=== PATIENT | female | born 1970 | race African-American/Black ===

== ENCOUNTER 2017-06-27 13:43 | Emergency (ER) | payer OTHER, MEDICAID ==
[~2017-06-27] VITALS: Ht 162.6 cm; Wt 61.2 kg
[~2017-06-27 13:43] MED LIST: AMOXICILLIN 50500 MG PO; ATIVAN0.5 MG PO; DIAZEPAM 5 MG5 M1 OR; FLEXERIL PO; IBUPROFEN 600600 M1 PO; IBUPROFEN 800800 MG PO; MECLIZINE HCL25 M1 PO; MEDROLDOSEPACK PO; NAPROXEN DELAY500 M1 PO; NOHOMEMEDICATIONS; NORCO 5-325 TA1 EACH PO; NORFLEX100 MG PO; PREDNISONE 10 M10 M1 PO; PRILOSEC 20 MG20 MG PO; ROBAXIN 750 MG750 M1 PO; VISTARIL 25 MG25 M1 OR; VISTARIL 25 MG25 M1 PO; ZOFRAN4 MG PO
[2017-06-27 14:17] LABS: URINE BILIRUBIN NEGATIVE (Negative); URINE BLOOD TRACE (Negative); URINE COLOR YELLOW; URINE GLUCOSE-RANDOM NEGATIVE (Negative); URINE KETONES NEGATIVE (Negative); URINE LEUKOCYTES-REFLEX NEGATIVE (Negative); URINE PROTEIN NEGATIVE (Negative); URINE SPECIFIC GRAVITY >= 1.030 (1.005-1.030); URINE UROBILINOGEN 0.2 E.U./dl (0.2-1.0)
[2017-06-27 14:18] LABS: URINE CLARITY HAZY; URINE NITRITE-REFLEX POSITIVE (Negative)
[2017-06-27 14:27] LABS: ABSOLUTE BASOPHILS 0.1 thou/uL (0.0-0.2); ABSOLUTE EOSINOPHILS 0.2 thou/uL (0.0-0.7); ABSOLUTE LYMPHOCYTES 2.4 thou/uL (0.8-5.3); ABSOLUTE MONOCYTES 0.5 thou/uL (0.0-1.2); ABSOLUTE NEUTROPHILS 3.2 thou/uL (1.6-8.1); BASOPHILS 1.2 %; EOSINOPHILS 2.7 %; HEMATOCRIT 38.8 % (37.0-47.0); HEMOGLOBIN 12.7 gm/dL (12.0-15.0); LYMPHOCYTES 37.9 %; MCH 27.3 pg (26.0-34.0); MCHC 32.8 g/dL (28.0-37.0); MCV 83.3 fL (80.0-100.0); MONOCYTES 7.9 %; MPV 10.6 fl. (7.2-11.1); NUCLEATED RBCS 0 /100WBC; PLATELET COUNT* 188 thou/uL (150-400); POLYS 50.3 %; RBC 4.65 mil/uL (4.20-5.00); RDW-CV 13.5 % (10.5-14.5); WBC 6.3 thou/uL (4.0-11.0)
[2017-06-27 14:30] LABS: BACTERIA-REFLEX >30 Many /HPF (None Seen); CASTS None Seen /LPF (None Seen); CRYSTALS None Seen /LPF (None Seen); SQUAMOUS >10 Many /LPF (0-3); URINE RBC None Seen /HPF (0-2); URINE WBC-REFLEX 6-15 Few /HPF (0-5)
[2017-06-27 14:34] LABS: CREATININE 0.8 mg/dL (0.6-1.3); POTASSIUM 3.6 mmol/L (3.5-5.1)
[2017-06-27 14:38] LABS: ALBUMIN 4.2 g/dL (3.4-5.0); TOTAL BILIRUBIN 0.5 mg/dL (<0.1-1.0); TOTAL PROTEIN 8.3 g/dL (6.4-8.2)
[2017-06-27 14:39] LABS: INFLUENZA A ANTIGEN None Detected (None Detect); INFLUENZA B ANTIGEN None Detected (None Detect)
[2017-06-27] MEDS ORDERED: BACTRIM DS TAB1 EACH PO (14:40)
[2017-06-27] MEDS ORDERED: TESSALON PERLE100 MG PO (14:44)
[2017-06-27] MEDS ORDERED: PROMETHAZINE V473 ML PO (14:44)
[2017-06-27] MEDS ORDERED: OSELB75 PO (14:44)
[2017-06-27 14:53] VITALS: BP 112/75
== END 2017-06-27 14:54 | disposition home or self-care (01) ==
LOC: M.ERS 13:43
PROVIDERS: Physician Assistant
DX: N39.0 Urinary tract infection, site not specified (principal); F17.210 Nicotine dependence, cigarettes, uncomplicated; Z87.442 Personal history of urinary calculi; Z90.710 Acquired absence of both cervix and uterus; Z98.890 Other specified postprocedural states

== ENCOUNTER 2017-07-15 11:43 | Emergency (ER) | payer OTHER, MEDICAID ==
[~2017-07-15] VITALS: Ht 165.1 cm; Wt 63.5 kg
[~2017-07-15 11:43] MED LIST changes: +BACTRIM DS TAB1 EACH PO; +OSELB75 PO; +PROMETHAZINE V473 ML PO; +TESSALON PERLE100 MG PO
[2017-07-15] MEDS ORDERED: IBUPROFEN 600600 M1 PO (11:56)
[2017-07-15 12:11] LABS: URINE BILIRUBIN NEGATIVE (Negative); URINE BLOOD NEGATIVE (Negative); URINE CLARITY CLEAR; URINE COLOR YELLOW; URINE GLUCOSE-RANDOM NEGATIVE (Negative); URINE KETONES NEGATIVE (Negative); URINE LEUKOCYTES-REFLEX NEGATIVE (Negative); URINE NITRITE-REFLEX NEGATIVE (Negative); URINE PROTEIN NEGATIVE (Negative); URINE SPECIFIC GRAVITY >= 1.030 (1.005-1.030); URINE UROBILINOGEN 0.2 E.U./dl (0.2-1.0)
[2017-07-15 12:27] LABS: INFLUENZA A ANTIGEN None Detected (None Detect); INFLUENZA B ANTIGEN None Detected (None Detect)
[2017-07-15] MEDS ORDERED: TESSALON PERLE100 MG PO (12:51)
[2017-07-15] MEDS ORDERED: VENTOLIN HFA 1818 GM INH (12:51)
[2017-07-15] MEDS ORDERED: PREDNISONE 10 M10 MG PO (12:51)
[2017-07-15 12:58] VITALS: BP 111/77
== END 2017-07-15 12:59 | disposition home or self-care (01) ==
LOC: M.ERS 11:43
PROVIDERS: Physician Assistant
DX: B34.9 Viral infection, unspecified (principal); F17.210 Nicotine dependence, cigarettes, uncomplicated; Z87.442 Personal history of urinary calculi; Z90.710 Acquired absence of both cervix and uterus; Z98.890 Other specified postprocedural states